=== PATIENT | female | born 1980 | race Caucasian/White ===

== ENCOUNTER 2018-08-20 18:26 | Emergency (ER) | payer OTHER ==
[~2018-08-20] VITALS: Ht 167.6 cm; Wt 92.1 kg
[~2018-08-20 18:26] MED LIST: CITA20TA9 PO; CLON-276 PO; DIVA500T4 PO; PHEN100C PO
[2018-08-20 18:38] VITALS: BP 117/73
--- NOTE | 2018-08-20 18:45 | PHYS DOC ---
Past History Past Medical History: Seizure Past Surgical History: No Surgical History Alcohol Use: None Drug Use: None Adult General Chief Complaint Chief Complaint: FINGER INJURY [facility] HPI Patient is a 38-year-old female who presents with complaint of injury and pain to her right small finger. Patient states that she had slammed the finger in the car door and finger was trapped. She states the pain is not really bad but she states that she is having difficulty with fully flexing and fully extending finger, which is why she wanted to have the finger looked at. Patient states that the pain is worsened with palpation and with active and passive flexion and extension of the digit.[] Review of Systems Review of Systems Constitutional: Denies fever or chills [] Respiratory: Denies cough or shortness of breath [] Cardiovascular: No additional information not addressed in HPI [] Musculoskeletal: Positive right small finger pain [] Integument: Denies rash or skin lesions [] Allergies Allergies Allergies Coded Allergies Type Severity Reaction Last Updated Verified codeine Allergy Intermediate 12/15/14 No Physical Exam Physical Exam Constitutional: Well developed, well nourished, no acute distress, non-toxic appearance. [] Cardiovascular:Heart rate regular rhythm, no murmur [] Lungs & Thorax: Bilateral breath sounds clear to auscultation [] Skin: Warm, dry, with ecchymosis to the distal phalanx, primarily on the palmar aspect. [] Extremities: Examination of the right small finger demonstrates soft tissue swe lling and ecchymosis. There is decreased active range of motion at the proximal and distal interphalangeal joints of that digit in both flexion and extension. [] EKG EKG [] Radiology/Procedures Radiology/Procedures [] Impressions: X-ray of right small finger demonstrates no acute bony abnormalities. Course & Med Decision Making Course & Med Decision Making Pertinent Labs and Imaging studies reviewed. (See chart for details) [] Dragon Disclaimer Dragon Disclaimer This electronic medical record was generated, in whole or in part, using a voice recognition dictation system. Departure Departure: Impression: Primary Impression: Crushing injury of finger of right hand Disposition: 01 HOME, SELF-CARE Condition: STABLE Referrals: PCP,NO (PCP) Patient Instructions: Crush Injury, Fingers or Toes Scripts Diclofenac Sodium (DICLOFENAC SODIUM) 50 Mg Tablet. 1 TAB PO BID PRN for PAIN, #20 TAB Prov: HARJINDER WRAY Jr. DO 08/20/18 HARJINDER WRAY Jr. DO Aug 20, 2018 18:45
[2018-08-20] MEDS ORDERED: DICL50TA4 PO (18:50)
--- NOTE | 2018-08-20 18:52 | RAD ---
EXAM: Right small finger, 3 views. HISTORY: Blunt trauma. COMPARISON: None. FINDINGS: 3 views of the right small finger are obtained. No acute displaced fracture is seen. There is slight angulation of the fifth metacarpal which may be developmental or due to a healed fracture. There is no radiodense foreign body. IMPRESSION: No acute osseous finding. Electronically signed by: Genie Helton MD (08/20/2018 6:49 PM) [facility]
== END 2018-08-20 19:08 | disposition home or self-care (01) ==
LOC: ER 18:26
DX: S67.196A Crushing injury of right little finger, initial encounter (principal); Z88.5 Allergy status to narcotic agent; W23.0XXA Caught, crushed, jammed, or pinched between moving objects, initial encounter; Y93.89 Activity, other specified; Y92.89 Other specified places as the place of occurrence of the external cause; Y99.8 Other external cause status
CPT/HCPCS: 29130; 73140; 99284